=== PATIENT | female | born 1965 | race African-American/Black ===

== ENCOUNTER 2022-01-30 10:25 | Emergency (ER) | payer OTHER ==
[~2022-01-30] VITALS: Ht 162.6 cm; Wt 79.4 kg
[~2022-01-30 10:25] MED LIST: ALPR2TAB1 PO; AMLO10TA1 PO; OXYC10TE14 PO; PARO10TA PO; PRON IH
[2022-01-30 10:30] VITALS: BP 153/108
--- NOTE | 2022-01-30 10:49 | NUR ---
56 Y/O FEMALE BIB SELF C/O 05/01 THROBBING PAIN IN THE LEFT ARM, NOTED WITH ROUND MOVEABLE MASS IN THE LEFT ARMPIT, STATES THAT THIS HAS BEEN GROWING X 1 WEEK. STATES THAT THEY SAW SOME BRIGHT RED BLOOD IN THEIR STOOL YESTERDAY. DENIES N/V/D. PENICILLIN PMH: COPD, ASTHMA, SCOLIOSIS, "SLIPPED DISKS"
--- NOTE | 2022-01-30 11:51 | NUR ---
CALLED LAB FOR BLOOD DRAW
--- NOTE | 2022-01-30 11:58 | NUR ---
LAB AT BEDSIDE
[2022-01-30 12:11] LABS: BASOPHILS # (AUTO) 0.1 K/uL (0.00-0.22); BASOPHILS % (AUTO) 1.3 % (0.0-2.0); EOSINOPHILS # (AUTO) 0.2 K/uL (0-0.4); EOSINOPHILS % (AUTO) 1.7 % (0.0-4.0); HEMATOCRIT 42.6 % (36-48); HEMOGLOBIN 14.1 g/dL (12.0-16.0); LYMPHOCYTES # (AUTO) 2.9 K/uL (2.5-16.5); LYMPHOCYTES % (AUTO) 31.8 % (20.5-51.1); MEAN CORPUSCULAR HEMOGLOBIN 31 pg (27-31); MEAN CORPUSCULAR HGB CONC 33 g/dL (33-37); MEAN CORPUSCULAR VOLUME 94.6 fL (80-94); MONOCYTES # (AUTO) 0.7 K/uL (0.8-1.0); MONOCYTES % (AUTO) 7.8 % (1.7-9.3); NEUTROPHILS # (AUTO) 5.3 K/uL (1.8-7.7); NEUTROPHILS % (AUTO) 57.4 % (42.2-75.2); PLATELET COUNT (AUTO) 370 K/uL (140-450); RED CELL DISTRIBUTION WIDTH 12.8 % (11.6-13.7); WHITE BLOOD COUNT (AUTO) 9.2 K/uL (4.8-10.8)
[2022-01-30 12:40] LABS: ALBUMIN 3.3 g/dL (3.4-5.0); ANION GAP 8.5 (8-16); CARBON DIOXIDE 29.5 mmol/L (21-32); TOTAL BILIRUBIN 0.3 mg/dL (0.0-1.0)
--- NOTE | 2022-01-30 12:54 | NUR ---
DR SHARP AT BEDSIDE FOR EVAL
--- NOTE | 2022-01-30 13:01 | NUR ---
Rectal exam performed per DR SHARP with URI [place] (FEMALE CANE PILER) at bedside during procedure. Patient tolerated well.
[2022-01-30] MEDS ORDERED: CLOT15CR9 TP (13:14)
[2022-01-30] MEDS ORDERED: SULF-58 PO (13:14)
--- NOTE | 2022-01-30 13:30 | NUR ---
Patient discharged with v/s stable. Written and verbal after care instructions given and explained. Patient alert, oriented and verbalized understanding of instructions. Ambulatory with steady gait. All questions addressed prior to discharge. ID band removed. Patient advised to follow up with PMD. Rx of BACTRIM, CLOTRIMAZOLE given. Patient educated on indication of medication including possible reaction and side effects. Opportunity to ask questions provided and answered.
[2022-01-30 13:32] VITALS: BP 139/84
== END 2022-01-30 13:32 | disposition home or self-care (01) ==
LOC: MED 10:25
DX: K64.4 Residual hemorrhoidal skin tags (principal); L73.2 Hidradenitis suppurativa; L29.9 Pruritus, unspecified; K64.9 Unspecified hemorrhoids; J45.909 Unspecified asthma, uncomplicated; I10 Essential (primary) hypertension; J44.9 Chronic obstructive pulmonary disease, unspecified; Z88.0 Allergy status to penicillin; F17.200 Nicotine dependence, unspecified, uncomplicated; Z98.890 Other specified postprocedural states
CPT/HCPCS: 36415; 80053; 85025; 99283

== ENCOUNTER 2022-03-24 18:52 | Emergency (ER) | payer OTHER ==
[~2022-03-24] VITALS: Ht 162.6 cm; Wt 79.8 kg
[~2022-03-24 18:52] MED LIST changes: +CLOT15CR9 TP; +SULF-58 PO
[2022-03-24 19:06] VITALS: BP 157/110
--- NOTE | 2022-03-24 21:19 | NUR ---
PT TAKEN TO BED #10 Addendum: 03/24/22 at 2325 by [facility] ERMD ASSESSING PT.
[2022-03-24 21:33] LABS: BASOPHILS # (AUTO) 0.1 K/uL (0.00-0.22); BASOPHILS % (AUTO) 1.4 % (0.0-2.0); EOSINOPHILS # (AUTO) 0.3 K/uL (0-0.4); EOSINOPHILS % (AUTO) 3.7 % (0.0-4.0); HEMATOCRIT 42.4 % (36-48); HEMOGLOBIN 14.3 g/dL (12.0-16.0); LYMPHOCYTES # (AUTO) 3.2 K/uL (2.5-16.5); LYMPHOCYTES % (AUTO) 36.3 % (20.5-51.1); MEAN CORPUSCULAR HEMOGLOBIN 32 pg (27-31); MEAN CORPUSCULAR HGB CONC 34 g/dL (33-37); MEAN CORPUSCULAR VOLUME 93.6 fL (80-94); MONOCYTES # (AUTO) 0.7 K/uL (0.8-1.0); MONOCYTES % (AUTO) 8.2 % (1.7-9.3); NEUTROPHILS # (AUTO) 4.5 K/uL (1.8-7.7); NEUTROPHILS % (AUTO) 50.4 % (42.2-75.2); PLATELET COUNT (AUTO) 345 K/uL (140-450); RED BLOOD CELL COUNT(AUTO) 4.53 MIL/uL (4.20-5.40); RED CELL DISTRIBUTION WIDTH 13.5 % (11.6-13.7); WHITE BLOOD COUNT (AUTO) 8.9 K/uL (4.8-10.8)
[2022-03-24 22:09] LABS: ALBUMIN 3.4 g/dL (3.4-5.0); ANION GAP 8.5 (8-16); ASPARTATE AMINOTRANSFERASE 16 U/L (15-37); CARBON DIOXIDE 29.3 mmol/L (21-32); CHLORIDE 108 mmol/L (98-107); CREATININE 1.1 mg/dL (0.6-1.3); GFR ARICAN-AMERICAN 66 mL/min (>90); GLUCOSE 109 mg/dL (74-106); POTASSIUM 3.8 mmol/L (3.5-5.1); SODIUM SERUM 142 mmol/L (136-145); TOTAL BILIRUBIN 0.1 mg/dL (0.0-1.0); UREA NITROGEN, BLOOD 17 mg/dL (7-18)
--- NOTE | 2022-03-24 23:21 | NUR ---
ERMD AT BEDSIDE ASSESSING PT.
[2022-03-24] MEDS ORDERED: IBUPROFEN 800 MG TAB PO ONE (23:25)
[2022-03-24] MEDS ORDERED: cephALEXin 500 MG CAP PO ONE (23:25)
[2022-03-24] MEDS ORDERED: CEPH-588 PO (23:30)
[2022-03-24] MEDS ORDERED: IBUP-2218 PO (23:30)
--- NOTE | 2022-03-24 23:40 | NUR ---
per ermd pt pk for dc w current vs/status.
[2022-03-24 23:45] VITALS: BP 163/110
--- NOTE | 2022-03-24 23:45 | NUR ---
Patient discharged with v/s stable. Written and verbal after care instructions given and explained. Patient alert, oriented and verbalized understanding of instructions. Ambulatory with steady gait. All questions addressed prior to discharge. ID band removed. Patient advised to follow up with PMD. Rx of motrin, keflex given. Patient educated on indication of medication including possible reaction and side effects. Opportunity to ask questions provided and answered.
== END 2022-03-24 23:45 | disposition home or self-care (01) ==
LOC: MED 18:52
DX: R10.9 Unspecified abdominal pain (principal); R33.9 Retention of urine, unspecified; J44.9 Chronic obstructive pulmonary disease, unspecified; I10 Essential (primary) hypertension; Z88.0 Allergy status to penicillin; Z79.899 Other long term (current) drug therapy
CPT/HCPCS: 36415; 71101; 80053; 81002; 84484; 85025; 93005; 99285

== ENCOUNTER 2022-07-17 19:47 | Emergency (ER) | payer OTHER ==
[~2022-07-17] VITALS: Ht 162.6 cm; Wt 78.5 kg
[~2022-07-17 19:47] MED LIST changes: +CEPH-588 PO; +IBUP-2218 PO
--- NOTE | 2022-07-17 19:50 | NUR ---
PT TAKEN TO BED #9
[2022-07-17 19:55] VITALS: BP 157/116
--- NOTE | 2022-07-17 20:07 | NUR ---
dr ross examining pt
--- NOTE | 2022-07-17 20:08 | NUR ---
57/F BIB SELF C/C 9/10 CHEST PAIN AND SOB X5DAYS. +COUGH/THROAT PAIN +CONGESTION +GREEN SPUTUM. PATIENT STATED SHE WAS NERVOUS AND HAVING ANXIETY. PATIENT AMBULATED TO BED 9 WITH STEADY GAIT. EKG COMPLETED AND GIVEN TO JOS WESTBROOK. 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 PATIENT [id number]. PMHX ANXIETY, COPD ALLERGIES PCN
--- NOTE | 2022-07-17 20:17 | NUR ---
PATIENT RQ BREATHING TX. MD WESTBROOK MADE AWARE.
[2022-07-17] MEDS ORDERED: ALBUTEROL 0.083% 2.5 MG/3 ML NEBU INH ONE (20:20)
[2022-07-17] MEDS ORDERED: ALBUTEROL SULFATE/IPRATROPIU 3 ML SOL IH ONE (20:20)
--- NOTE | 2022-07-17 20:25 | NUR ---
RT GILMER AT BEDSIDE FOR BREATHING TREATMENT
[2022-07-17] MEDS ORDERED: AZIT250T4 PO (20:46)
[2022-07-17] MEDS ORDERED: IBUP-2213 PO (20:46)
[2022-07-17] MEDS ORDERED: PRED20TA5 PO (20:46)
[2022-07-17] MEDS ORDERED: ALBU0.0912 INH (20:46)
[2022-07-17 20:50] VITALS: BP 136/99
--- NOTE | 2022-07-17 20:51 | NUR ---
Patient discharged with v/s stable. Written and verbal after care instructions given and explained. Patient alert, oriented and verbalized understanding of instructions. Ambulatory with steady gait. All questions addressed prior to discharge. ID band removed. Patient advised to follow up with PMD. Rx SENT TO PHARMACY. Patient educated on indication of medication including possible reaction and side effects. Opportunity to ask questions provided and answered.
== END 2022-07-17 20:51 | disposition home or self-care (01) ==
LOC: MED 19:47
DX: J18.9 Pneumonia, unspecified organism (principal); R07.89 Other chest pain; R06.02 Shortness of breath; R05.9 Cough, unspecified; J44.9 Chronic obstructive pulmonary disease, unspecified; I10 Essential (primary) hypertension; F17.200 Nicotine dependence, unspecified, uncomplicated; Z98.890 Other specified postprocedural states; Z88.0 Allergy status to penicillin; Z79.899 Other long term (current) drug therapy
CPT/HCPCS: 93005; 99283; J7613; 94640

== ENCOUNTER 2024-04-18 20:53 | Emergency (ER) | payer OTHER ==
[~2024-04-18] VITALS: Ht 162.6 cm; Wt 68.0 kg
[~2024-04-18 20:53] MED LIST changes: +ALBU0.0912 INH; +AZIT250T4 PO; +IBUP-2213 PO; -PARO10TA PO; +PRED20TA5 PO; +[UNRECOGNIZED DRUG - CODE] PO
[2024-04-18 21:25] VITALS: BP 140/89; PULSE 83; RESP 20; TEMP 98; O2SAT 97
[2024-04-18 22:40] VITALS: BP 140/89; PULSE 83; RESP 20; TEMP 98; O2SAT 97
[2024-04-19] MEDS ORDERED: HYD1C TP (00:06)
[2024-04-19] MEDS ORDERED: PERM5CRE3 TP (00:06)
== END 2024-04-18 22:40 | disposition left against medical advice (07) ==
LOC: MED 20:53
DX: L29.9 Pruritus, unspecified (principal); Z53.21 Procedure and treatment not carried out due to patient leaving prior to being seen by health care provider

== ENCOUNTER 2024-04-18 23:44 | Emergency (ER) | payer MEDICARE, OTHER ==
[~2024-04-18] VITALS: Ht 157.5 cm; Wt 81.6 kg
[2024-04-18 23:46] VITALS: BP 140/82; PULSE 72; RESP 18; TEMP 98; O2SAT 100
[2024-04-19] MEDS ORDERED: HYD1C TP (00:06)
[2024-04-19] MEDS ORDERED: PERM5CRE3 TP (00:06)
[2024-04-19 00:25] VITALS: BP 140/82; PULSE 72; RESP 18; TEMP 98; O2SAT 100
== END 2024-04-19 00:25 | disposition home or self-care (01) ==
LOC: MED 23:44
DX: R21 Rash and other nonspecific skin eruption (principal); L29.9 Pruritus, unspecified; J44.9 Chronic obstructive pulmonary disease, unspecified; I10 Essential (primary) hypertension; Z79.899 Other long term (current) drug therapy; Z88.0 Allergy status to penicillin
CPT/HCPCS: 99282